=== PATIENT | male | born 1960 | race Caucasian/White ===

== ENCOUNTER 2024-03-07 18:08 | Emergency (ER) | payer OTHER, SELFPAY ==
[2024-03-07 18:10] VITALS: BP 148/91
--- NOTE | 2024-03-07 18:21 | ED.GENMED ---
History of Present Illness
General
Chief Complaint: Allergic Reaction
Time Seen by Provider: 03/07/24 18:16
History of Present Illness
History of Present Illness:
63-year-old male with history of CAD status post tenting, hypertension, hyperlipidemia presenting to the emergency department with an allergic reaction. Patient states that about 1-1/2 hours prior to arrival he was stung by a bee to his lower lip.
Immediately started to swell. It did not improve so he came to the emergency department for further evaluation. No tongue swelling or difficulty swallowing or feeling like his throat was closing. No nausea or vomiting. No diarrhea or upset
stomach. He is allergic to tetracyclines. He has been stung by bees before without a reaction. There was no stinger that they noted. No hives. He did not take any medications prior to arrival.
Past History
Past History
ED Past Medical History: HTN
ED Past Surgical History: None
Social History
Tobacco: Smoker
Drug: None
Phy Exam
Physical Exam
Physical Exam:
GENERAL: in no acute distress
HEENT: normocephalic, extraocular movements intact, moist oral mucosa, lower lip swelling, no stinger visualized, no tongue swelling, uvula normal without any significant posterior pharyngeal edema
NECK: normal inspection
RESPIRATORY: no respiratory distress, clear to auscultation bilaterally
CARDIOVASCULAR: regular rate and rhythm
ABDOMEN/: soft, non-distended, non-tender to palpation, no rebound or guarding
EXTREMITIES: non-tender, no edema/swelling
NEUROLOGIC: awake and alert, moves all extremities
SKIN: warm
Course
Orders/Labs/Results
Orders:
Orders
03/07/24 18:21
Dexamethasone Sod Phosphate [Decadron] 8 mg IV NOW STA
Diphenhydramine [Benadryl] 25 mg IV NOW STA
Famotidine [Pepcid] 20 mg IV NOW STA
Vital Signs
Initial and Last Documented VS:
Initial Vital Signs
Temp Pulse Resp BP Pulse Ox
98.3 F 107 20 148/91 95
03/07/24 18:10 03/07/24 18:10 03/07/24 18:10 03/07/24 18:10 03/07/24 18:10
Last Documented Vital Signs
Temp Pulse Resp BP Pulse Ox
98.3 F 87 17 155/103 99
03/07/24 18:10 03/07/24 18:34 03/07/24 18:34 03/07/24 18:34 03/07/24 18:34
MDM/Problems Addressed
Differential Diagnosis Includes:
Patient is a 63-year-old man presenting to the emergency after an allergic reaction from a bee sting. Vitals here notable for normal blood pressure and oxygen saturation. On exam he does have significant lower lip swelling with no wheezing stridor
or airway compromise. Likely allergic reaction. Does not meet criteria for anaphylaxis. Will treat with Benadryl steroid and Pepcid. Ice pack is placed to the lip. Will monitor for some improvement in the swelling prior to discharge
*Critical Care Note
Total Time (30-74mins, 75-104mins- exclusive of procedures): Not Applicable
Update Note
Update Note:
On reevaluation patient resting comfortably. There is some improvement in the swelling of his lower lip. It is not as taut. No redosing or epinephrine required. He is requesting discharge at this time which is appropriate Patient educated on
using Benadryl/Claritin for the next 24 to 48 hours. Strict return precautions given.
ED Attending Note
-
Portions of this chart may have been created with voice recognition software.� Occasional wrong word or��sound alike� substitutions may have occurred due to the inherent limitations of voice recognition software.
Discharge Plan
Departure
Patient Disposition: Home (Routine Discharge)
Date of Disposition: 03/07/24
Time of Disposition: 20:07
Patient with high blood pressure during this ER visit?: Yes
Discharge Problem:
Allergic reaction
Instructions: Allergic Reaction ED
Prescriptions:
No Action
Aspirin
81 mg PO DAILY
Atorvastatin
20 mg PO HS
Fish Oil
1 cap PO DAILY
Lisinopril
5 mg PO HS
Metoprolol Succinate Er
100 mg PO HS
oxycodone-acetaminophen [Endocet] 1 EACH tablet
1 ea PO QIDPRN PRN (Reason: pain) Qty: 20 0RF
tamsulosin 0.4 MG capsule
0.4 mg PO DAILY Qty: 10 0RF
ondansetron 4 MG tablet,disintegrating
4 - 8 mg PO QIDPRN PRN (Reason: NAUSEA) Qty: 20 0RF
Referrals:
Noé Campos MD [Family Provider] -
Interventions
Interventions:
*Risk Screen - Suicide Last Done: 03/07/24 18:10
*General Assessment Last Done: 03/07/24 18:10
*Neglect/Abuse Screening Last Done: 03/07/24 18:10
Discharge Date and Time
Print Language: IRISH
[2024-03-07] MEDS: BENADRYL 25 MG IV (18:24)
[2024-03-07] MEDS: DECADRON 8 MG IV (18:25)
[2024-03-07] MEDS: PEPCID 20 MG IV (18:25)
[2024-03-07 18:34] VITALS: BP 155/103
[2024-03-07 19:00] VITALS: BP 155/93
[2024-03-07 20:00] VITALS: BP 145/93
== END 2024-03-07 20:21 | disposition home or self-care (01) ==
LOC: EMR 18:08
PROVIDERS: EMERGENCY PHYSICIAN Student in an Organized Health Care Education/Training Program; FAMILY PHYSICIAN Family Medicine
DX: T63.441A Toxic effect of venom of bees, accidental (unintentional), initial encounter (principal); I10 Essential (primary) hypertension; I25.10 Atherosclerotic heart disease of native coronary artery without angina pectoris; E78.5 Hyperlipidemia, unspecified; F17.200 Nicotine dependence, unspecified, uncomplicated
CPT/HCPCS: 99284; 96374; 96375 ×2

== ENCOUNTER → 2024-07-03 15:03 | Outpatient (REF) | payer MEDICARE, OTHER, SELFPAY | LOC: RCS 15:03 | PROVIDERS: ATTENDING PHYSICIAN Internal Medicine Cardiovascular Disease; FAMILY PHYSICIAN Family Medicine | DX: I25.10 Atherosclerotic heart disease of native coronary artery without angina pectoris (principal); E78.5 Hyperlipidemia, unspecified; Z72.0 Tobacco use; I51.7 Cardiomegaly | CPT/HCPCS: 93306 ==